=== PATIENT | male | born 1955 | race Caucasian/White ===

== ENCOUNTER → 2020-05-29 | Outpatient (CLI) | payer MEDICARE, OTHER ==
--- NOTE | 2020-05-29 15:10 | RAD ---
EXAM: Abdominal aortic sonogram. HISTORY: Aneurysm screening. Atherosclerosis. Cigarette smoking. TECHNIQUE: Sonographic imaging of the abdominal aorta was performed. COMPARISON: None. FINDINGS: The proximal abdominal aorta is obscured due to bowel gas. The mid and distal abdominal aor ta measure 1.9 cm in caliber. The common iliac arteries measure 1.1 cm in caliber bilaterally. IMPRESSION: No evidence of abdominal aortic aneurysm. Electronically signed by: Lucita Galindo MD (05/29/2020 3:07 PM) [id number]
== END ==
LOC: US 08:39
PROVIDERS: ATTEND Family Medicine
DX: Z13.6 Encounter for screening for cardiovascular disorders (principal); I71.4 Abdominal aortic aneurysm, without rupture
CPT/HCPCS: 76770

== ENCOUNTER → 2020-09-19 | Outpatient (CLI) | payer MEDICARE, OTHER ==
--- NOTE | 2020-09-19 14:04 | RAD ---
EXAM: CT low dose lung cancer screening. HISTORY: Lung cancer screening CT. TECHNIQUE: Computed tomographic images of the chest were obtained without contrast. Multiplanar refor matting was performed. *One or more of the following individualized dose reduction techniques were utilized for this examina tion: 1. Automated exposure control. 2. Adjustment of the mA and/or kV according to patient size. 3. Use of iterative reconstruction technique. COMPARISON: None. FINDINGS: The heart is normal in size. There is a mildly dilated ascending aorta measuring 3.8 cm in caliber. There is no lymphadenopathy. There is calcification of the aortic valve. There is no pneumot horax or pleural effusion. There is mild pulmonary emphysema with subpleural bleb formation. There is a 6 mm nodule with adjacent 2 mm nodule within the right upper lobe (series 8, image 50). Th ere is a 4 mm groundglass nodule within the anterior right upper lobe (series 6, image 54). There is a 3 mm pleural-based nodule within the lateral right middle lobe (series 6, image 69). There is a 9 m m nodule within the lateral right middle lobe (series 6, image 85). There is a 2 mm pleural-based nod ule within the posterior right lower lobe (series 6, image 88). There is a 4 mm nodule within the lat eral left lower lobe disease series 6, image 75). There is a 3 mm nodule within the lateral left uppe r lobe (series 6, image 21). There is no acute finding involving the upper abdomen or osseous structures. There is no suspicious o sseous lesion. There is degenerative change involving the thoracic spine with associated endplate Sheldon morl's nodes. IMPRESSION: 1. Multiple pulmonary nodules, largest which measures 9 mm within the lateral right middle lobe. Lung Rads Category 4: Short-term follow-up with a chest CT in 3 months or PET/CT is recommended. 2. No acute thoracic finding. Electronically signed by: Lucita Galindo MD (09/19/2020 2:02 PM) [id number]
== END ==
LOC: CT 10:18
PROVIDERS: ATTEND Family Medicine
DX: Z12.2 Encounter for screening for malignant neoplasm of respiratory organs (principal); R91.8 Other nonspecific abnormal finding of lung field; J43.9 Emphysema, unspecified; I35.8 Other nonrheumatic aortic valve disorders; I77.810 Thoracic aortic ectasia; F17.210 Nicotine dependence, cigarettes, uncomplicated; M47.814 Spondylosis without myelopathy or radiculopathy, thoracic region; M51.44 Schmorl's nodes, thoracic region
CPT/HCPCS: 71271